=== PATIENT | female | born 1950 | race African-American/Black ===

== ENCOUNTER 2016-06-14 09:07 | Inpatient (IN) | payer MEDICARE, MEDICAID ==
[~2016-06-14] VITALS: Ht 167.6 cm; Wt 71.7 kg
[2016-06-14] MEDS ORDERED: NKM (09:28)
[2016-06-14 09:32] VITALS: BP 102/68
[2016-06-14] MEDS ORDERED: Tylenol #3 tab (300mg/30mg) ORAL ONE (10:30)
[2016-06-14] MEDS: Ipratropium 0.02% Inh Soln 2.5ml UD HHN SCH ×3 (10:41→11:15)
[2016-06-14] MEDS: Albuterol ud Inhalation HHN SCH ×3 (10:41→11:15)
--- NOTE | 2016-06-14 11:27 | Emergency Room Report ---
History of Present Illness General Chief Complaint: Flu Like Symptoms Source: Patient Present Illness HPI 65 YO F with 5 days productive cough, myalgias, sinus congestion, subjective fever/chills. Denies smoking. Denies asthma/COPD. Didnt take flu vaccine, PNA vavvine. Denies other PMHx. also sick in ED with simialr symptoms. Allergies: Uncoded Allergies: CODEIN (Allergy, Unknown, 06/14/16) PCN (Allergy, Unknown, 06/14/16) Patient History Past Medical History: none Past Surgical History: none Pertinent Family History: none Social History: Denies: alcohol use, drug use, smoking Now: No Immunizations: UTD Reviewed Nursing Documentation: PMH: Agreed, PSxH: Agreed Nursing Documentation-PMH Past Medical History: No History, Except For Review of Systems All Other Systems: negative except mentioned in HPI Physical Exam Vital Signs Date Time Temp Pulse Resp B/P Pulse Ox O2 Delivery O2 Flow Rate FiO2 06/14/16 09:23 98.2 85 16 102/68 95 Room Air 06/14/16 10:42 21 Sp02 EP Interpretation: reviewed, normal General Appearance: normal inspection, well appearing, no apparent distress, alert, GCS 15, non-toxic Head: normocephalic, atraumatic Eyes: bilateral eye EOMI, bilateral eye PERRL ENT: normal ENT inspection, hearing grossly normal, normal pharynx, no angioedema, normal voice, TMs + canals normal, uvula midline, moist mucus membranes Neck: normal inspection, full range of motion, supple, no bony tend Respiratory: normal inspection, lungs clear, normal breath sounds, no respiratory distress, no retraction, no wheezing, crackles, other - Crackles, rhonchi left lung Cardiovascular #1: regular rate, rhythm, no edema Gastrointestinal: normal inspection, normal bowel sounds, non tender, soft, no guarding, no hernia Genitourinary: no CVA tenderness Musculoskeletal: normal inspection, back normal, normal range of motion, Mayela' s Sign negative Neurologic: normal inspection, alert, oriented x3, responsive, information systems security specialist III-XII nml as tested, motor strength/tone normal, speech normal Psychiatric: normal inspection, judgement/insight normal, mood/affect normal Skin: normal inspection, normal color, no rash Medical Decision Making Medicare Attestation I Elva Stone MD hereby attest that the medical record entry for date of service, 05/05/16 accurately reflects signatures/notations that I made in my capacity as MD when I treated/diagnosed the above listed Medicare beneficiary. I attest that this information is true, accurate and complete to the best of my knowledge. I understand that any falsification, omission, or concealment of material fact may subject me to administrative, civil, or criminal liability. This patient warrants hospital admission for extreme of age and has a condition that cannot be treated as outpatient. Diagnostic Impression: Primary Impression: Pneumonia Qualified Codes: J18.9 - Pneumonia, unspecified organism Additional Impressions: JORGE (acute kidney injury) Hypokalemia ER Course 65 YO F with viral like illness also with clinical PNA, left upper lobe rhonchi on exam. VS notable for tachycardia. Afebrile. Empiric tx with Levo for suspected CAP EKG Diagnostic Results Rate: normal Rhythm: NSR ST Segments: no acute changes ASA given to the pt in ED: No Rhythm Strip Diag. Results EP Interpretation: yes Rate: 74 Rhythm: NSR, no PVC's, no ectopy Chest X-Ray Diagnostic Results EP Interpretation: Yes Findings: no consolidation Number of Views: 1 Reevaluation Time: 11:50 Last Vital Signs Date Time Temp Pulse Resp B/P Pulse Ox O2 Delivery O2 Flow Rate FiO2 06/14/16 10:43 21 06/14/16 10:43 81 18 99 Room Air 06/14/16 09:32 98.3 102/68 Status: improved Reevaluation Impression Labs: No leuks. H&H stable. ?JORGE (no previous serumCr to compare). HypoK CXR: No obvious focal PNA A: Clinical PNA vs influenza. Persistent rhonchi heard on exam in upper/mid left lung. EMpiric ABx given for PNA. Patient not septic, no SIRS. Labs significant delayed and patient was upstairs prior to receipt of CMP so HypoK could not be repleted Endorsed to Dr Kennedy at 1150am Disposition: ADMITTED INPATIENT Condition: Serious ELVA STONE M.D. Jun 14, 2016 11:27
--- NOTE | 2016-06-14 11:54 | Diagnostic Imaging Report ---
Indications: COUGH Technique: Portable AP chest Findings: Comparison: None Linear and small calcified nodular densities are present in the left lung base. The left hemidiaphragm is mildly elevated. Right lung clear. Left costophrenic angle slightly blunted; right sharp. Bones and extra pulmonary soft tissues, cardiomediastinal silhouette, pulmonary vasculature unremarkable. IMPRESSION: Calcified granuloma, subsegmental atelectasis versus scarring, mild parenchymal volume loss left lung base Suggestion of associated mild left basal pleural thickening versus fluid Remainder of exam unremarkable
[2016-06-14 12:04] VITALS: BP 110/65
[2016-06-14 12:45] VITALS: BP 109/59
[2016-06-14 12:49] LABS: BASOPHILS % (AUTO) 0.9 % (0.0-2.0); LYMPHOCYTES % (AUTO) 9.4 % (20.0-45.0); MEAN CORPUSCULAR HEMOGLOBIN 26.3 PG (27.0-31.0); MEAN CORPUSCULAR VOLUME 85 FL (80-99); MEAN PLATELET VOLUME 9.4 FL (6.5-10.1); MONOCYTES % (AUTO) 6.5 % (1.0-10.0); NEUTROPHILS % (AUTO) 83.2 % (45.0-75.0); PLATELET COUNT 180 K/UL (150-450); RED BLOOD COUNT 5.07 M/UL (4.20-5.40); RED CELL DISTRIBUTION WIDTH 13.7 % (11.6-14.8); WHITE BLOOD COUNT 8.6 K/UL (4.8-10.8)
[2016-06-14 13:02] LABS: ALBUMIN/GLOBULIN RATIO 0.9 (1.0-2.7); CALCIUM 9.3 mg/dL (8.6-10.2); GLOMERULAR FILTRATION RATE 30.3 mL/min (>60); POTASSIUM 3.1 mEQ/L (3.4-4.9); TOTAL PROTEIN 7.6 g/dL (6.6-8.7)
[2016-06-14 13:32] VITALS: BP 115/60
--- NOTE | 2016-06-14 14:30 | History & Physical ---
History and Physical History & Physicial HP dictated # [id number] CHEVY RANDOLPH Jun 14, 2016 14:30
[2016-06-14 15:58] VITALS: BP 107/65
[2016-06-14] MEDS: DuoNeb 0.5-3(2.5)mg/3ml neb HHN SCH (19:45)
[2016-06-14 20:00] VITALS: BP 107/62
[2016-06-14] MEDS ORDERED: Zolpidem 5mg tab ORAL PRN (21:00)
[2016-06-14 23:03] LABS: APPEARANCE,URINE SLIGHTLY CLOUDY; KETONES,URINE NEGATIVE (NEGATIVE); LEUKOCYTE ESTERASE ,URINE 1+ (NEGATIVE); NITRITE,URINE NEGATIVE (NEGATIVE); PH,URINE 5 (4.5-8.0); PROTEIN,URINE 3+ (NEGATIVE); UROBILINOGEN,URINE NORMAL MG/DL (0.0-1.0)
[2016-06-14 23:04] LABS: CREATININE, RANDOM URINE 266.6 mg/dL
[2016-06-14 23:10] LABS: RBC,URINE 0-2 /HPF (0 - 2)
[2016-06-14 23:11] LABS: BACTERIA,URINE MODERATE /HPF; SQUAMOUS EPITHELIAL CELL,UR FEW /LPF (NONE/OCC)
[2016-06-15] VITALS: BP 117/62
[2016-06-15] MEDS: DuoNeb 0.5-3(2.5)mg/3ml neb HHN SCH ×4 (01:28→20:14)
[2016-06-15 04:00] VITALS: BP 122/57
--- NOTE | 2016-06-15 06:47 | History and Physical Report ---
DATE OF ADMISSION: 06/14/2016 CHIEF COMPLAINT: Cough, sputum production, and congestion. HISTORY OF PRESENT ILLNESS: This is a 65-year-old female, who started having the above symptoms about 4 days ago and progressed to the degree that she had to come to the hospital today. The patient denies fevers, but she said that her sputum was bloody. The patient was diagnosed with pneumonia in the emergency room and was admitted for further care. PAST MEDICAL HISTORY: The patient denies any previous history of chronic obstructive pulmonary disease, asthma, any lung problems, hypertension, or diabetes. MEDICATIONS: None. ALLERGIES: Penicillin causing swelling up and codeine the patient is intolerant to. SOCIAL HISTORY: The patient lives at home with . No history of smoking or alcohol abuse. REVIEW OF SYSTEMS: As above. PHYSICAL EXAMINATION: GENERAL: The patient is a 65-year-old female, in no acute distress. VITAL SIGNS: Blood pressure 150/60, pulse 104, respiratory rate is 20, and temperature 96.8. HEENT: [place] conjunctivae. Anicteric sclerae. NECK: Supple. LUNGS: Mild rhonchi bilaterally. HEART: S1 and S2 without murmurs or rubs. ABDOMEN: Soft and nontender. EXTREMITIES: No cyanosis or edema. LABORATORY FINDINGS: The CBC shows a WBC of 8.6, hematocrit 43, hemoglobin is 13.3, and platelets 180,000. The chemistry panel shows serum sodium 140, potassium 3.1, chloride 95, CO2 of 24, BUN is 41, creatinine 2, and blood sugar is 143. ASSESSMENT: This is a 65-year-old female, who was admitted with diagnosis of pneumonia. She has also renal failure. In the absence of previous history of renal failure, we have to assume this is acute, possibly as a result of prerenal azotemia, although other causes should be ruled out. The patient has also had hypokalemia. She had some diarrhea in the past couple of days. PLAN: The patient will be treated with intravenous Levaquin. The patient will be on bronchodilators via hand-held nebulizer, intravenous fluids will be administered. We will check urine studies including UA as well as urine sodium and urine creatinine to calculate the fractional excretion of the sodium. If the kidney function does not improve, a kidney ultrasound will be ordered as well. Yasmany Kennedy M.D. DR: TRENT JOB#: [id number] CC: OPAL
[2016-06-15 07:35] LABS: HEMOGLOBIN A1C 5.8 % (< 6.0)
[2016-06-15 08:00] VITALS: BP 131/65
[2016-06-15 08:06] LABS: THYROID STIMULATING HORMONE 1.39 uIU/mL (0.300-4.500)
[2016-06-15 08:24] LABS: CALCIUM 9.2 mg/dL (8.6-10.2); CHOLESTEROL/HDL RATIO 3.8 (3.3-4.4); CREATININE 1.4 mg/dL (0.5-0.9); GLOMERULAR FILTRATION RATE 45.8 mL/min (>60); MAGNESIUM 2.2 mg/dL (1.7-2.5); POTASSIUM 3.5 mEQ/L (3.4-4.9); TOTAL PROTEIN 7.1 g/dL (6.6-8.7)
[2016-06-15] MEDS ORDERED: guaiFENesin DM 100mg/5ml ORAL PRN (11:00)
[2016-06-15 12:00] VITALS: BP 113/73
--- NOTE | 2016-06-15 15:14 | General Progress Note ---
Assessment/Plan Problem List: (1) Pneumonia ICD Codes: J18.9 - Pneumonia, unspecified organism SNOMED: 610070377 Qualifiers: Qualified Codes: J18.9 - Pneumonia, unspecified organism (2) ARF (acute renal failure) Assessment & Plan: better ICD Codes: N17.9 - Acute kidney failure, unspecified SNOMED: 67074561 (3) Hypokalemia Assessment & Plan: ok ICD Codes: E87.6 - Hypokalemia SNOMED: 33862477 Assessment/Plan abxs bronchodilators IVF follow labs Subjective Allergies: Uncoded Allergies: CODEIN (Allergy, Unknown, 06/14/16) PCN (Allergy, Unknown, 06/14/16) Subjective feels better Objective Last 24 Hour Vital Signs Date Time Temp Pulse Resp B/P Pulse Ox O2 Delivery O2 Flow Rate FiO2 06/15/16 13:38 88 16 99 Room Air 06/15/16 13:36 88 18 Room Air 21 06/15/16 13:25 88 20 98 Room Air 06/15/16 12:00 98.1 88 18 113/73 97 Room Air 06/15/16 08:00 98.2 92 18 131/65 93 Room Air 06/15/16 07:55 85 16 99 Room Air 06/15/16 07:45 80 20 91 Room Air 06/15/16 04:00 98.4 88 20 122/57 91 Room Air 06/15/16 01:31 91 16 99 Room Air 06/15/16 01:24 85 16 95 Room Air 06/15/16 00:00 98.1 84 20 117/62 96 Room Air 06/14/16 20:00 98.2 86 20 107/62 93 Room Air 06/14/16 19:50 89 16 99 Room Air 06/14/16 19:45 81 16 96 Room Air 06/14/16 19:45 81 16 Room Air 06/14/16 15:58 97.7 90 18 107/65 95 Room Air Intake and Output 06/14/16 06/15/16 19:00 07:00 Intake Total 510 ml 825 ml Balance 510 ml 825 ml Intake Oral 360 ml IV Total 150 ml 825 ml # Voids 2 4 Laboratory Tests 06/14/16 18:15: Urine Color Yellow, Urine Appearance Slightly cloudy, Urine pH 5, Urine Specific [place] 1.020, Urine Protein 3+H, Urine Glucose (UA) Negative, Urine Ketones Negative, Urine Occult Blood 1+H, Urine Nitrite Negative, Urine Bilirubin Negative, Urine Urobilinogen Normal, Urine Leukocyte Esterase 1+H, Urine RBC 0-2, Urine WBC 2-4, Urine Squamous Epithelial Cells Few, Urine Bacteria ModerateH, Urine Random Sodium 10, Urine Creatinine 266.6 06/15/16 04:45: Sodium Level 141, Potassium Level 3.5, Chloride Level 97L, Carbon Dioxide Level 26, Anion Gap 18H, Blood Urea Nitrogen 28H, Creatinine 1.4H, Estimat Glomerular Filtration Rate 45.8, Glucose Level 106, Hemoglobin A1c 5.8, Calcium Level 9.2, Magnesium Level 2.2, Total Bilirubin 0.2, Aspartate Amino Transf (AST/SGOT) 40, Alanine Aminotransferase (ALT/SGPT) 13, Alkaline Phosphatase 42, Total Protein 7.1, Albumin 3.6, Globulin 3.5, Albumin/Globulin Ratio 1.0, Triglycerides Level 91, Cholesterol Level 111, LDL Cholesterol 64, HDL Cholesterol 29, Cholesterol/ HDL Ratio 3.8, Thyroid Stimulating Hormone (TSH) 1.390 Height (Feet): 5 Height (Inches): 6.00 Weight (Pounds): 158 Cardiovascular: normal rate Respiratory/Chest: lungs clear Abdomen: soft CHEVY RANDOLPH Jun 15, 2016 15:14
[2016-06-15 16:00] VITALS: BP 118/68
--- NOTE | 2016-06-15 19:47 | Cardiology Report ---
APPROVED REPORT EKG Measurement Heart [id number] [id number] Normal sinus rhythm Possible Left atrial enlargement Nonspecific T wave abnormality Abnormal ECG
[2016-06-15 20:00] VITALS: BP 126/75
[2016-06-16] VITALS: BP 102/69
--- NOTE | 2016-06-16 00:17 | Consultation ---
DATE OF CONSULTATION: 06/15/2016 INFECTIOUS DISEASE CONSULTATION PRIMARY ATTENDING PHYSICIAN: Yasmany Kennedy M.D. REASON FOR CONSULT: Bronchitis and pneumonia. HISTORY OF PRESENT ILLNESS: The patient is a 65-year-old female admitted yesterday from home because of coughing, myalgia, subjective fever and chills, and sore throat. Symptoms going for couple of days. The patient's also becomes weak. PAST MEDICAL HISTORY: Significant. The patient did not have any vaccination for pneumonia or flu and is not willing to get vaccinated. MEDICATIONS: Levaquin, Ambien, DuoNeb inhaler, ranitidine, sodium chloride, and Tylenol. ALLERGIES: The patient is allergic to penicillin and codeine. REVIEW OF SYSTEMS: Productive cough and sore throat. No nausea. No vomiting. No chest pain. No problem passing urine. The patient is ambulatory. PHYSICAL EXAMINATION: GENERAL APPEARANCE: She is in no acute distress. Awake, alert, and oriented x3. VITAL SIGNS: Temperature is 98.2 degrees, pulse is 92, and blood pressure is 131/65. HEAD AND NECK: [place] conjunctiva. HEART: Regular. LUNGS: Clear bilaterally. ABDOMEN: Soft and nontender. EXTREMITIES: She has no edema. LABORATORY AND DIAGNOSTIC DATA: WBC 8.6, hemoglobin 13.3, hematocrit 43, and platelets 180,000. Sodium 141, potassium 3.5, BUN 28, and creatinine 1.4. Glucose was 106. Chest x-ray showed calcified granuloma, subsegmental atelectasis versus scarring in the left lung base. IMPRESSION: Bronchitis versus early pneumonia. The patient may have community acquired pneumonia. The patient has acute renal failure and penicillin allergy. RECOMMENDATION: We will continue with IV Levaquin and will send sputum culture. The patient refused to have pneumonia and flu shot. At the end of my exam, I thank Dr. Yasmany Kennedy for involving me in the care of this patient. Eddie Kennedy M.D. DR: Carol JOB#: [id number] CC: OPAL
[2016-06-16] MEDS: DuoNeb 0.5-3(2.5)mg/3ml neb HHN SCH ×4 (01:55→19:28)
[2016-06-16 04:00] VITALS: BP 137/68
[2016-06-16 07:11] LABS: ANION GAP 13 (5-15); CALCIUM 8.8 mg/dL (8.6-10.2); CARBON DIOXIDE 26 mEQ/L (20-30); CHLORIDE 101 mEQ/L (98-107); CREATININE 1.1 mg/dL (0.5-0.9); GLOMERULAR FILTRATION RATE > 60 mL/min (>60); HEMOLYSIS 2; POTASSIUM 3.7 mEQ/L (3.4-4.9); SODIUM 140 mEQ/L (135-145)
[2016-06-16 07:37] LABS: MEAN CORPUSCULAR HEMOGLOBIN 26.5 PG (27.0-31.0); MEAN CORPUSCULAR HGB CONC 31.6 G/DL (32.0-36.0); MEAN CORPUSCULAR VOLUME 84 FL (80-99); MEAN PLATELET VOLUME 9.3 FL (6.5-10.1); PLATELET COUNT 177 K/UL (150-450); RED BLOOD COUNT 4.36 M/UL (4.20-5.40); RED CELL DISTRIBUTION WIDTH 13.6 % (11.6-14.8); WHITE BLOOD COUNT 2.7 K/UL (4.8-10.8)
[2016-06-16 08:14] VITALS: BP 100/71
--- NOTE | 2016-06-16 09:52 | Infectious Diseases Prog Note ---
Assessment/Plan Assessment/Plan A: CAP Bronchitis PCN allergy P: Continue Levaquin Repeat CXR Subjective ROS Limited/Unobtainable: No HEENT: Reports: no symptoms Respiratory: Reports: productive cough Gastrointestinal/Abdominal: Reports: no symptoms Genitourinary: Reports: no symptoms Allergies: Uncoded Allergies: CODEIN (Allergy, Unknown, 06/14/16) PCN (Allergy, Unknown, 06/14/16) Objective Vital Signs Last 24 Hour Vital Signs Date Time Temp Pulse Resp B/P Pulse Ox O2 Delivery O2 Flow Rate FiO2 06/16/16 08:14 98.1 78 18 100/71 92 Room Air 06/16/16 04:00 99.1 83 20 137/68 92 Room Air 06/16/16 01:55 94 20 97 Room Air 21 06/16/16 01:55 89 20 95 Room Air 21 06/16/16 00:00 99.7 104 22 102/69 94 Room Air 06/15/16 20:00 97.7 91 22 126/75 90 Room Air 06/15/16 19:40 92 20 96 Room Air 21 06/15/16 19:30 90 20 94 Room Air 21 06/15/16 19:30 90 20 Room Air 21 06/15/16 16:00 98.2 87 18 118/68 96 Room Air 06/15/16 13:38 88 16 99 Room Air 06/15/16 13:36 88 18 Room Air 21 06/15/16 13:25 88 20 98 Room Air 06/15/16 12:00 98.1 88 18 113/73 97 Room Air Height (Feet): 5 Height (Inches): 6.00 Weight (Pounds): 158 General Appearance: no acute distress HEENT: mucous membranes moist Respiratory/Chest: lungs clear, decreased breath sounds Cardiovascular: normal rate Abdomen: soft, non tender Extremities: no edema Neurologic/Psychiatric: alert, oriented x 3, responsive Microbiology Date/Time Source Procedure Growth Status 06/14/16 17:45 Blood Blood Culture - Preliminary NO GROWTH AFTER 24 HOURS Resulted 06/14/16 17:30 Blood Blood Culture - Preliminary NO GROWTH AFTER 24 HOURS Resulted 06/14/16 18:15 Urine,Clean Catch Urine Culture - Preliminary NO GROWTH Resulted Laboratory Tests Test 06/16/16 04:40 White Blood Count 2.7 K/UL (4.8-10.8) L Red Blood Count 4.36 M/UL (4.20-5.40) Hemoglobin 11.5 G/DL (12.0-16.0) L Hematocrit 36.5 % (37.0-47.0) L Mean Corpuscular Volume 84 FL (80-99) Mean Corpuscular Hemoglobin 26.5 PG (27.0-31.0) L Mean Corpuscular Hemoglobin Concent 31.6 G/DL (32.0-36.0) L Red Cell Distribution Width 13.6 % (11.6-14.8) Platelet Count 177 K/UL (150-450) Mean Platelet Volume 9.3 FL (6.5-10.1) Neutrophils (%) (Auto) % (45.0-75.0) Lymphocytes (%) (Auto) % (20.0-45.0) Monocytes (%) (Auto) % (1.0-10.0) Eosinophils (%) (Auto) % (0.0-3.0) Basophils (%) (Auto) % (0.0-2.0) Neutrophils % (Manual) Pending Lymphocytes % (Manual) Pending Platelet Estimate Pending Platelet Morphology Pending Sodium Level 140 mEQ/L (135-145) Potassium Level 3.7 mEQ/L (3.4-4.9) Chloride Level 101 mEQ/L (98-107) Carbon Dioxide Level 26 mEQ/L (20-30) Anion Gap 13 (5-15) Blood Urea Nitrogen 16 mg/dL (7-23) Creatinine 1.1 mg/dL (0.5-0.9) H Estimat Glomerular Filtration Rate > 60 mL/min (>60) Glucose Level 98 mg/dL (74-106) Calcium Level 8.8 mg/dL (8.6-10.2) Current Medications Medications (Trade) Dose Ordered Sig/Adrian Route PRN Reason Start Time Stop Time Status Last Admin Dose Admin Acetaminophen (Tylenol) 650 mg Q4H PRN ORAL Mild Pain (Pain Scale 1-3) 06/14/16 15:00 2 14:59 Acetaminophen (Tylenol) 650 mg Q4H PRN ORAL fever 06/14/16 15:00 07/14/16 14:59 Albuterol/ Ipratropium (DuoNeb 0.5-3(2.5)mg/3ml) 3 ml Q6HRT HHN 06/14/16 19:00 06/19/16 18:59 06/16/16 07:26 Dextrose STAT PRN IV Hypoglycemia 06/14/16 15:00 07/14/16 14:59 Guaifenesin/ Dextromethorphan (Robitussin DM) 5 ml Q4H PRN ORAL For Cough 06/15/16 11:00 07/15/16 10:59 Levofloxacin (Levaquin 750mg/ D5W) 150 ml @ 100 mls/hr Q24H IVPB 06/16/16 11:00 06/23/16 10:59 Ranitidine HCl (Zantac) 150 mg Q24H ORAL 06/14/16 16:00 07/14/16 15:59 06/15/16 16:09 Sodium Chloride (0.45% NS 1000ml) 1,000 ml @ 75 mls/hr [id number] IV 06/14/16 15:00 07/14/16 14:59 06/16/16 03:27 Zolpidem Tartrate (Ambien) 5 mg HSPRN PRN ORAL Insomnia 06/14/16 21:00 07/14/16 20:59 LILIANE RANDOLPH Jun 16, 2016 09:52
[2016-06-16 10:59] LABS: LYMPHOCYTES % (MANUAL) 34 % (20-45); NEUTROPHILS % (MANUAL) 46 % (45-75); TOTAL CELLS COUNTED 100
[2016-06-16 11:00] LABS: BAND NEUTROPHILS % (MANUAL) 0 % (0-8); BASOPHILS % (MANUAL) 0 % (0-2); EOSINOPHILS % (MANUAL) 0 % (0-3); HYPOCHROMASIA 1+; PLATELET ESTIMATE ADEQUATE; PLATELET MORPHOLOGY NORMAL
[2016-06-16 11:58] VITALS: BP_SYST 126; BP_SYST 137; BP_DIAS 70; BP_DIAS 74
--- NOTE | 2016-06-16 13:02 | Diagnostic Imaging Report ---
Indications: Cough Technique: Portable AP chest Findings: Comparison: 06/14/16 Cardiac silhouette remains normal in size. Pulmonary vasculature remains within normal limits. Left lung base subsegmental atelectasis versus scarring with mild elevation of adjacent left hemidiaphragm unchanged. Lungs and pleura remain otherwise clear. Impression: No evidence of acute disease, unchanged Stable chronic changes as described
--- NOTE | 2016-06-16 14:39 | General Progress Note ---
Assessment/Plan Problem List: (1) Pneumonia ICD Codes: J18.9 - Pneumonia, unspecified organism SNOMED: 441617936 Qualifiers: Qualified Codes: J18.9 - Pneumonia, unspecified organism (2) ARF (acute renal failure) Assessment & Plan: better ICD Codes: N17.9 - Acute kidney failure, unspecified SNOMED: 30795769 (3) Hypokalemia Assessment & Plan: ok ICD Codes: E87.6 - Hypokalemia SNOMED: [id number] Assessment/Plan abxs bronchodilators IVF follow labs Subjective Allergies: Uncoded Allergies: CODEIN (Allergy, Unknown, 06/14/16) PCN (Allergy, Unknown, 06/14/16) Subjective feels better Objective Last 24 Hour Vital Signs Date Time Temp Pulse Resp B/P Pulse Ox O2 Delivery O2 Flow Rate FiO2 06/16/16 11:58 97.9 81 18 126/74 94 Room Air 06/16/16 08:14 98.1 78 18 100/71 92 Room Air 06/16/16 04:00 99.1 83 20 137/68 92 Room Air 06/16/16 01:55 94 20 97 Room Air 21 06/16/16 01:55 89 20 95 Room Air 21 06/16/16 00:00 99.7 104 22 102/69 94 Room Air 06/15/16 20:00 97.7 91 22 126/75 90 Room Air 06/15/16 19:40 92 20 96 Room Air 21 06/15/16 19:30 90 20 94 Room Air 21 06/15/16 19:30 90 20 Room Air 21 06/15/16 16:00 98.2 87 18 118/68 96 Room Air Intake and Output 06/15/16 06/16/16 19:00 07:00 Intake Total 855 ml 675 ml Balance 855 ml 675 ml Intake Oral 480 ml IV Total 375 ml 675 ml # Voids 3 7 Laboratory Tests 06/16/16 04:40: White Blood Count 2.7L, Red Blood Count 4.36, Hemoglobin 11.5L, Hematocrit 36.5L , Mean Corpuscular Volume 84, Mean Corpuscular Hemoglobin 26.5L, Mean Corpuscular Hemoglobin Concent 31.6L, Red Cell Distribution Width 13.6, Platelet Count 177, Mean Platelet Volume 9.3, Neutrophils (%) (Auto) , Lymphocytes (%) (Auto) , Monocytes (%) (Auto) , Eosinophils (%) (Auto) , Basophils (%) (Auto) , Differential Total Cells Counted 100, Neutrophils % ( Manual) 46, Lymphocytes % (Manual) 34, Monocytes % (Manual) 20H, Eosinophils % ( Manual) 0, Basophils % (Manual) 0, Band Neutrophils 0, Platelet Estimate Adequate, Platelet Morphology Normal, Hypochromasia 1+, Sodium Level 140, Potassium Level 3.7, Chloride Level 101, Carbon Dioxide Level 26, Anion Gap 13, Blood Urea Nitrogen 16, Creatinine 1.1H, Estimat Glomerular Filtration Rate > 60 , Glucose Level 98, Calcium Level 8.8 Height (Feet): 5 Height (Inches): 6.00 Weight (Pounds): 158 Cardiovascular: normal rate Respiratory/Chest: lungs clear Edema: no edema noted Generalized CHEVY RANDOLPH Jun 16, 2016 14:39
[2016-06-16 16:00] VITALS: BP 136/66
[2016-06-16 20:00] VITALS: BP 115/76
[2016-06-17] VITALS: BP 117/72
[2016-06-17] MEDS: DuoNeb 0.5-3(2.5)mg/3ml neb HHN SCH ×3 (00:43→13:06)
[2016-06-17 04:00] VITALS: BP 111/70
[2016-06-17 08:16] VITALS: BP 123/75
[2016-06-17 12:00] VITALS: BP 130/86
--- NOTE | 2016-06-17 13:55 | Infectious Diseases Prog Note ---
Assessment/Plan Assessment/Plan A: CAP Bronchitis PCN allergy P: Continue Levaquin Subjective ROS Limited/Unobtainable: No Constitutional: Reports: no symptoms Respiratory: Reports: dry cough Gastrointestinal/Abdominal: Reports: no symptoms Genitourinary: Reports: no symptoms Allergies: Uncoded Allergies: CODEIN (Allergy, Unknown, 06/14/16) PCN (Allergy, Unknown, 06/14/16) Objective Vital Signs Last 24 Hour Vital Signs Date Time Temp Pulse Resp B/P Pulse Ox O2 Delivery O2 Flow Rate FiO2 06/17/16 12:00 97.0 84 18 130/86 98 Room Air 06/17/16 08:16 97.2 81 18 123/75 98 Room Air 06/17/16 07:40 88 18 100 Room Air 06/17/16 07:25 90 20 94 Nasal Cannula 06/17/16 07:25 21 06/17/16 07:25 90 20 Room Air 06/17/16 04:00 97.7 78 18 111/70 95 Room Air 06/17/16 01:14 87 18 99 Room Air 06/17/16 00:43 21 06/17/16 00:43 90 18 92 Room Air 06/17/16 00:00 98.2 79 18 117/72 94 Room Air 06/16/16 20:00 99.1 89 20 115/76 94 Room Air 06/16/16 19:45 86 18 99 Room Air 06/16/16 19:28 83 18 98 Room Air 06/16/16 19:28 21 06/16/16 16:31 82 19 97 Room Air 06/16/16 16:30 83 19 97 Room Air 06/16/16 16:30 82 18 Room Air 06/16/16 16:00 98.2 82 22 136/66 99 Room Air 06/16/16 14:10 21 06/16/16 13:55 82 19 96 Room Air 21 06/16/16 13:55 82 19 96 Room Air 21 Height (Feet): 5 Height (Inches): 6.00 Weight (Pounds): 158 General Appearance: no acute distress HEENT: mucous membranes moist Respiratory/Chest: lungs clear Cardiovascular: normal rate Abdomen: soft, non tender Extremities: no edema Neurologic/Psychiatric: alert, oriented x 3, responsive Microbiology Date/Time Source Procedure Growth Status 06/14/16 17:45 Blood Blood Culture - Preliminary NO GROWTH AFTER 48 HOURS Resulted 06/14/16 17:30 Blood Blood Culture - Preliminary NO GROWTH AFTER 48 HOURS Resulted 06/15/16 14:20 Sputum Gram Stain - Final Complete 06/15/16 14:20 Sputum Sputum Culture - Final NORMAL UPPER RESPIRATORY DENISSE PRESENT Complete 06/14/16 18:15 Urine,Clean Catch Urine Culture - Final Mixed Gram Positive Organism Complete Current Medications Medications (Trade) Dose Ordered Sig/Adrian Route PRN Reason Start Time Stop Time Status Last Admin Dose Admin Acetaminophen (Tylenol) 650 mg Q4H PRN ORAL Mild Pain (Pain Scale 1-3) 06/14/16 15:00 07/14/16 14:59 Acetaminophen (Tylenol) 650 mg Q4H PRN ORAL fever 06/14/16 15:00 07/14/16 14:59 Albuterol/ Ipratropium (DuoNeb 0.5-3(2.5)mg/3ml) 3 ml Q6HRT HHN 06/14/16 19:00 06/19/16 18:59 06/17/16 07:25 Dextrose STAT PRN IV Hypoglycemia 06/14/16 15:00 07/14/16 14:59 Guaifenesin/ Dextromethorphan (Robitussin DM) 5 ml Q4H PRN ORAL For Cough 06/15/16 11:00 07/15/16 10:59 Levofloxacin (Levaquin 750mg/ D5W) 150 ml @ 100 mls/hr Q24H IVPB 06/16/16 11:00 06/23/16 10:59 06/17/16 09:49 Ranitidine HCl (Zantac) 150 mg Q24H ORAL 06/14/16 16:00 07/14/16 15:59 06/16/16 16:36 Sodium Chloride (0.45% NS 1000ml) 1,000 ml @ 75 mls/hr [id number] IV 06/14/16 15:00 07/14/16 14:59 06/17/16 09:49 Zolpidem Tartrate (Ambien) 5 mg HSPRN PRN ORAL Insomnia 06/14/16 21:00 07/14/16 20:59 LILIANE RANDOLPH Jun 17, 2016 13:55
[2016-06-17 16:00] VITALS: BP 146/88
[2016-06-17] MEDS ORDERED: LEVAQUIN750 MG ORAL (16:07)
--- NOTE | 2016-06-17 16:10 | Consultation ---
Consult Note Assessment/Plan Dc dictated # [id number] CHEVY RANDOLPH Jun 17, 2016 16:10
[2016-06-17] MEDS ORDERED: 1/2 NS 1000ml IV ONE ×2 (16:44)
--- NOTE | 2016-06-18 04:07 | Discharge Summary ---
DATE OF ADMISSION: 06/14/2016 DATE OF DISCHARGE: 06/17/2016 CHIEF COMPLAINT: Cough, sputum production, and congestion. HISTORY OF PRESENT ILLNESS: This is a 65-year-old female, who was admitted with above symptoms. The patient was diagnosed with pneumonia and was admitted for further care. HOSPITAL COURSE: The patient was started on intravenous Levaquin. She was allergic to penicillin. Also, she was started on handheld nebulizer bronchodilators. She had some acute renal failure as well with serum creatinine of 2.0 with BUN of 41. The patient was hypokalemic with potassium 3.1. The patient was hydrated with IV fluids. Her BUN and creatinine came down to 16 and 1.1 as of 06/16/2016. Potassium is repleted. The last potassium was on 06/16/2016 at 3.7. The patient's rest of the symptoms improved significantly and she was sent home. DISCHARGE MEDICATIONS: The patient is supposed to take Levaquin 750 milligram once a day for the next 4 days. DISCHARGE DIAGNOSES: 1. Pneumonia. 2. Acute renal failure with volume depletion. 3. Hypokalemia. FOLLOWUP: The patient was asked to come to my office for followup in about a week. Diet was regular. Yasmany Kennedy M.D. DR: A[place] JOB#: [id number] CC: OPAL
== END 2016-06-17 16:45 | disposition home or self-care (01) | DRG 194 ==
LOC: EMR 10:50 → 4W 11:30 → EDBEDREQ 12:12
DX: J18.9 Pneumonia, unspecified organism (principal); N17.9 Acute kidney failure, unspecified; E87.6 Hypokalemia; Z88.0 Allergy status to penicillin
CPT/HCPCS: 36415; 71010; 80048; 80053; 80061; 81001; 82570; 83036; 83735; 84300; 84443; 85007; 85025; 87040; 87070; 87086; 87205; 93005; 94640; 94664; J7620

== ENCOUNTER 2017-03-23 11:45 | Outpatient (CLI) | payer MEDICAID, MEDICARE ==
[~2017-03-23 11:45] MED LIST: LEVAQUIN750 MG ORAL; NKM
[2017-03-23 12:26] LABS: BASOPHILS % (AUTO) 1.6 % (0.0-2.0); EOSINOPHILS % (AUTO) 3.2 % (0.0-3.0); LYMPHOCYTES % (AUTO) 27.5 % (20.0-45.0); MEAN CORPUSCULAR HEMOGLOBIN 27.2 PG (27.0-31.0); MEAN CORPUSCULAR HGB CONC 30.7 G/DL (32.0-36.0); MEAN CORPUSCULAR VOLUME 89 FL (80-99); MEAN PLATELET VOLUME 9.5 FL (6.5-10.1); MONOCYTES % (AUTO) 6.5 % (1.0-10.0); NEUTROPHILS % (AUTO) 61.2 % (45.0-75.0); PLATELET COUNT 224 K/UL (150-450); RED BLOOD COUNT 4.36 M/UL (4.20-5.40); RED CELL DISTRIBUTION WIDTH 13.9 % (11.6-14.8); WHITE BLOOD COUNT 4.7 K/UL (4.8-10.8)
[2017-03-23 12:34] LABS: ANION GAP 9 mmol/L (5-15); CALCIUM 9.5 MG/DL (8.5-10.1); CARBON DIOXIDE 28 MMOL/L (21-32); CHLORIDE 110 MMOL/L (98-107); CREATININE 1.3 MG/DL (0.55-1.30); GLOMERULAR FILTRATION RATE 49.7 mL/min (>60); INR 1.1 (0.9-1.1); POTASSIUM 4.1 MMOL/L (3.5-5.1); SODIUM 147 MMOL/L (136-145)
--- NOTE | 2017-03-25 15:22 | Cardiology Report ---
APPROVED REPORT EKG Measurement Heart [id number] AR [id number] [id number] Normal sinus rhythm Normal ECG
== END 2017-03-23 13:45 | disposition home or self-care (01) ==
LOC: LAB 11:45
DX: Z01.818 Encounter for other preprocedural examination (principal); J20.9 Acute bronchitis, unspecified
CPT/HCPCS: 36415; 80048; 85025; 85610; 85730; 93005

== ENCOUNTER 2017-10-25 22:09 | Emergency (ER) | payer MEDICARE ==
[~2017-10-25] VITALS: Ht 167.6 cm; Wt 66.2 kg
[2017-10-25 22:29] VITALS: BP 143/77
--- NOTE | 2017-10-25 22:42 | Emergency Room Report ---
History of Present Illness General Chief Complaint: Eye Problems Source: Patient Present Illness HPI This is a 67-year-old female with no past medical history. Presents with chief complaint of left eye foreign body sensation and redness. She was in bed when she got up and felt that something might of fluid into her eye. No pain. She fell some swelling and when she looked in the mirror there is redness. No headache. No fever chills but no nausea no vomiting. No visual loss. Allergies: Uncoded Allergies: CODEIN (Allergy, Unknown, 06/14/16) PCN (Allergy, Unknown, 06/14/16) Patient History Past Medical History: see triage record, old chart reviewed Past Surgical History: other Pertinent Family History: none Social History: Denies: smoking Now: No Immunizations: other Reviewed Nursing Documentation: PMH: Agreed; PSxH: Agreed Nursing Documentation-PMH Past Medical History: No Stated History Hx Cardiac Problems: No Hx Cancer: No Hx Gastrointestinal Problems: No Hx Neurological Problems: No Review of Systems Eye: Reports: other; Denies: eye pain, blurred vision ENT: Denies: ear pain, nose congestion, throat swelling Respiratory: Denies: cough, shortness of breath Cardiovascular: Denies: chest pain, palpitations Gastrointestinal: Denies: abdominal pain, diarrhea, nausea, vomiting Musculoskeletal: Denies: back pain, joint pain Skin: Denies: rash Neurological: Denies: headache, numbness Endocrine: Denies: increased thirst, increased urine Hematologic/Lymphatic: Denies: easy bruising All Other Systems: negative except mentioned in HPI Physical Exam Vital Signs Date Time Temp Pulse Resp B/P (MAP) Pulse Ox O2 Delivery O2 Flow Rate FiO2 10/25/17 22:12 98.0 76 16 138/72 95 Room Air 98.1 Vitals normal Sp02 EP Interpretation: reviewed, normal General Appearance: well appearing, no apparent distress, alert Head: normocephalic, atraumatic Eyes: left eye other - Left eye with subconjunctival hemorrhage on the lateral aspect. No visual loss. There is some edema to the sclera from the blood. No other trauma.; bilateral eye PERRL, bilateral eye EOMI ENT: hearing grossly normal, normal pharynx Neck: full range of motion, supple, no meningismus Respiratory: chest non-tender, lungs clear, normal breath sounds Cardiovascular #1: regular rate, rhythm, no murmur Gastrointestinal: normal bowel sounds, non tender, no mass, no organomegaly, no bruit, non-distended Musculoskeletal: back normal, gait/station normal, normal range of motion Psychiatric: mood/affect normal Skin: warm/dry Medical Decision Making Diagnostic Impression: Primary Impression: Subconjunctival hemorrhage of left eye ER Course Patient with a subconjunctival hemorrhage of the left eye. No foreign body. No visual loss. No trauma. We'll discharge home with reassurance. Last Vital Signs Date Time Temp Pulse Resp B/P (MAP) Pulse Ox O2 Delivery O2 Flow Rate FiO2 10/25/17 22:29 98.2 76 18 143/77 99 Room Air 98.2 Status: unchanged Disposition: HOME, SELF-CARE Condition: Stable Referrals: Yasmany Kennedy MD (PCP) Additional Instructions: Follow-up your doctor in 7 days. If not better may need to see an eye doctor. Return if symptom worsen. Ice pack to the area. IOANA SCHULZ M.D. October 25, 2017 22:42
[2017-10-25 22:49] VITALS: BP 138/70
[2017-10-25 22:54] VITALS: BP 138/70
== END 2017-10-25 22:50 | disposition home or self-care (01) ==
LOC: EMR 22:26
DX: H11.32 Conjunctival hemorrhage, left eye (principal); Z88.0 Allergy status to penicillin; Z88.6 Allergy status to analgesic agent
CPT/HCPCS: 99283

== ENCOUNTER → 2018-03-01 | Outpatient (CLI) | payer MEDICAID, MEDICARE ==
[2018-03-01 10:52] LABS: APPEARANCE,URINE CLEAR; BASOPHILS % (AUTO) 1.4 % (0.0-2.0); BILIRUBIN, URINE NEGATIVE (NEGATIVE); EOSINOPHILS % (AUTO) 5.9 % (0.0-3.0); GLUCOSE, URINE (UA) NEGATIVE (NEGATIVE); HEMATOCRIT 39.7 % (37.0-47.0); HEMOGLOBIN 12.4 G/DL (12.0-16.0); KETONES,URINE NEGATIVE (NEGATIVE); LEUKOCYTE ESTERASE ,URINE 3+ (NEGATIVE); LYMPHOCYTES % (AUTO) 33.3 % (20.0-45.0); MEAN CORPUSCULAR VOLUME 85 FL (80-99); MONOCYTES % (AUTO) 5.8 % (1.0-10.0); NEUTROPHILS % (AUTO) 53.6 % (45.0-75.0); NITRITE,URINE NEGATIVE (NEGATIVE); PH,URINE 5 (4.5-8.0); PLATELET COUNT 236 K/UL (150-450); PROTEIN,URINE 1+ (NEGATIVE); RED BLOOD COUNT 4.69 M/UL (4.20-5.40); RED CELL DISTRIBUTION WIDTH 13.1 % (11.6-14.8); UROBILINOGEN,URINE NORMAL MG/DL (0.0-1.0); WHITE BLOOD COUNT 4.6 K/UL (4.8-10.8)
[2018-03-01 11:01] LABS: COLOR,URINE YELLOW
[2018-03-01 11:20] LABS: ALANINE AMINOTRANSFERASE 20 U/L (12-78); ALKALINE PHOSPHATASE 51 U/L (46-116); ANION GAP 8 mmol/L (5-15); ASPARTATE AMINO TRANSFERASE 38 U/L (15-37); BILIRUBIN,TOTAL 0.4 MG/DL (0.2-1.0); BLOOD UREA NITROGEN 13 mg/dL (7-18); CALCIUM 9.5 MG/DL (8.5-10.1); CARBON DIOXIDE 29 MMOL/L (21-32); CHLORIDE 107 MMOL/L (98-107); CHOLESTEROL 165 MG/DL (< 200); CREATININE 1.3 MG/DL (0.55-1.30); HDL CHOLESTEROL 68 MG/DL (40-60); POTASSIUM 3.9 MMOL/L (3.5-5.1); SODIUM 144 MMOL/L (136-145); TRIGLYCERIDES 55 MG/DL (30-150)
== END | disposition home or self-care (01) ==
LOC: RAD 08:31
DX: J45.909 Unspecified asthma, uncomplicated (principal); I10 Essential (primary) hypertension
CPT/HCPCS: 36415; 80053; 80061; 81001; 83036; 85025

== ENCOUNTER → 2019-01-04 | Outpatient (CLI) | payer MEDICARE ==
[2019-01-04 12:17] LABS: APPEARANCE,URINE SLIGHTLY CLOUDY; BILIRUBIN, URINE NEGATIVE (NEGATIVE); COLOR,URINE PALE YELLOW; GLUCOSE, URINE (UA) NEGATIVE (NEGATIVE); KETONES,URINE NEGATIVE (NEGATIVE); LEUKOCYTE ESTERASE ,URINE 2+ (NEGATIVE); NITRITE,URINE NEGATIVE (NEGATIVE); PH,URINE 5 (4.5-8.0); PROTEIN,URINE NEGATIVE (NEGATIVE); UROBILINOGEN,URINE NORMAL MG/DL (0.0-1.0)
[2019-01-04 12:19] LABS: BASOPHILS % (AUTO) 2.9 % (0.0-2.0); EOSINOPHILS % (AUTO) 5.9 % (0.0-3.0); HEMATOCRIT 35.7 % (37.0-47.0); HEMOGLOBIN 11.2 G/DL (12.0-16.0); LYMPHOCYTES % (AUTO) 28.3 % (20.0-45.0); MEAN CORPUSCULAR VOLUME 85 FL (80-99); MONOCYTES % (AUTO) 6.4 % (1.0-10.0); NEUTROPHILS % (AUTO) 56.6 % (45.0-75.0); PLATELET COUNT 237 K/UL (150-450); RED BLOOD COUNT 4.21 M/UL (4.20-5.40); WHITE BLOOD COUNT 5.1 K/UL (4.8-10.8)
[2019-01-04 12:44] LABS: ALANINE AMINOTRANSFERASE 18 U/L (12-78); ALBUMIN 3.8 G/DL (3.4-5.0); ALBUMIN/GLOBULIN RATIO 0.9 (1.0-2.7); ALKALINE PHOSPHATASE 42 U/L (46-116); ANION GAP 9 mmol/L (5-15); ASPARTATE AMINO TRANSFERASE 40 U/L (15-37); BILIRUBIN,TOTAL 0.7 MG/DL (0.2-1.0); BLOOD UREA NITROGEN 14 mg/dL (7-18); CALCIUM 9.4 MG/DL (8.5-10.1); CARBON DIOXIDE 27 MMOL/L (21-32); CHLORIDE 109 MMOL/L (98-107); CHOLESTEROL 147 MG/DL (< 200); CREATININE 1.3 MG/DL (0.55-1.30); HDL CHOLESTEROL 61 MG/DL (40-60); POTASSIUM 3.7 MMOL/L (3.5-5.1); SODIUM 145 MMOL/L (136-145); TRIGLYCERIDES 42 MG/DL (30-150)
== END | disposition home or self-care (01) ==
LOC: LAB 11:49
DX: I10 Essential (primary) hypertension (principal); K21.9 Gastro-esophageal reflux disease without esophagitis; J45.909 Unspecified asthma, uncomplicated
CPT/HCPCS: 36415; 80053; 80061; 81001; 84443; 85025

== ENCOUNTER 2019-01-13 13:32 | Outpatient (CLI) | payer MEDICARE ==
[2019-01-13 14:05] LABS: ANION GAP 8 mmol/L (5-15); BLOOD UREA NITROGEN 21 mg/dL (7-18); CALCIUM 9.9 MG/DL (8.5-10.1); CARBON DIOXIDE 29 MMOL/L (21-32); CHLORIDE 106 MMOL/L (98-107); CREATININE 1.5 MG/DL (0.55-1.30); POTASSIUM 3.8 MMOL/L (3.5-5.1); SODIUM 142 MMOL/L (136-145)
== END 2019-01-13 15:32 | disposition home or self-care (01) ==
LOC: LAB 13:32
DX: K21.9 Gastro-esophageal reflux disease without esophagitis (principal); I10 Essential (primary) hypertension
CPT/HCPCS: 36415; 80048; 82306; 83036; 83970

== ENCOUNTER 2019-07-11 13:04 | Outpatient (CLI) | payer MEDICARE, OTHER ==
[2019-07-11 13:49] LABS: APPEARANCE,URINE CLEAR; BILIRUBIN, URINE NEGATIVE (NEGATIVE); GLUCOSE, URINE (UA) NEGATIVE (NEGATIVE); KETONES,URINE NEGATIVE (NEGATIVE); LEUKOCYTE ESTERASE ,URINE 1+ (NEGATIVE); NITRITE,URINE NEGATIVE (NEGATIVE); PH,URINE 5 (4.5-8.0); PROTEIN,URINE NEGATIVE (NEGATIVE); UROBILINOGEN,URINE NORMAL MG/DL (0.0-1.0)
[2019-07-11 13:50] LABS: BASOPHILS % (AUTO) 1.4 % (0.0-2.0); COLOR,URINE YELLOW; EOSINOPHILS % (AUTO) 3.4 % (0.0-3.0); HEMOGLOBIN 11.8 G/DL (12.0-16.0); LYMPHOCYTES % (AUTO) 27.2 % (20.0-45.0); MEAN CORPUSCULAR VOLUME 85 FL (80-99); MONOCYTES % (AUTO) 6.8 % (1.0-10.0); NEUTROPHILS % (AUTO) 61.3 % (45.0-75.0); PLATELET COUNT 217 K/UL (150-450); RED BLOOD COUNT 4.38 M/UL (4.20-5.40); RED CELL DISTRIBUTION WIDTH 13.9 % (11.6-14.8); WHITE BLOOD COUNT 5.5 K/UL (4.8-10.8)
[2019-07-11 14:08] LABS: ALANINE AMINOTRANSFERASE 24 U/L (12-78); ALBUMIN 3.8 G/DL (3.4-5.0); ALBUMIN/GLOBULIN RATIO 0.9 (1.0-2.7); ALKALINE PHOSPHATASE 48 U/L (46-116); ANION GAP 10 mmol/L (5-15); ASPARTATE AMINO TRANSFERASE 29 U/L (15-37); BILIRUBIN,TOTAL 0.5 MG/DL (0.2-1.0); BLOOD UREA NITROGEN 14 mg/dL (7-18); CALCIUM 9.3 MG/DL (8.5-10.1); CARBON DIOXIDE 29 MMOL/L (21-32); CHLORIDE 108 MMOL/L (98-107); CREATININE 1.3 MG/DL (0.55-1.30); PHOSPHORUS 3.3 MG/DL (2.5-4.9); POTASSIUM 3.7 MMOL/L (3.5-5.1); SODIUM 147 MMOL/L (136-145)
== END 2019-07-11 15:04 | disposition home or self-care (01) ==
LOC: LAB 13:04
DX: I12.9 Hypertensive chronic kidney disease with stage 1 through stage 4 chronic kidney disease, or unspecified chronic kidney disease (principal); N18.9 Chronic kidney disease, unspecified
CPT/HCPCS: 36415; 80053; 81001; 82306; 83735; 84100; 85025

== ENCOUNTER 2019-09-19 15:26 | Emergency (ER) | payer MEDICARE, OTHER ==
[~2019-09-19] VITALS: Ht 167.6 cm; Wt 64.9 kg
[2019-09-19 15:34] VITALS: BP 130/77
[2019-09-19] MEDS ORDERED: IBUPROFEN400 MG ORAL (15:52)
[2019-09-19] MEDS ORDERED: PRILOSEC OTC20 MG ORAL (15:52)
--- NOTE | 2019-09-19 15:54 | Emergency Room Report ---
History of Present Illness General Chief Complaint: Upper Extremity Injury Source: Patient Present Illness HPI Patient is a 68-year-old female presents after increased right upper extremity pain. Patient reports having a fall from standing after tripping on branch. She reports being right-hand dominant. Reports having pain to the right shoulder. She denies hitting her head. She denies loss of consciousness. She denies other locations of injury. Denies any difficulty breathing. Denies any other prior injuries to the shoulder. Reports having some increased pain to the right side. Denies any chest pain or discomfort. Denies any shortness of breath. Allergies: Uncoded Allergies: CODEIN (Allergy, Unknown, 06/14/16) PCN (Allergy, Unknown, 06/14/16) COVID-19 Screening Contact w/high risk pt: No Recent Travel to affected area: No Experienced COVID-19 symptoms?: No Patient History Past Medical History: see triage record Reviewed Nursing Documentation: PMH: Agreed; PSxH: Agreed Nursing Documentation-PMH Past Medical History: No History, Except For Hx Cardiac Problems: No Hx Asthma: No - PNA Hx Cancer: No Hx Gastrointestinal Problems: No Hx Neurological Problems: No Review of Systems All Other Systems: negative except mentioned in HPI Physical Exam Vital Signs Date Time Temp Pulse Resp B/P (MAP) Pulse Ox O2 Delivery O2 Flow Rate FiO2 09/19/19 15:34 98.2 80 18 130/77 99 Room Air Sp02 EP Interpretation: reviewed, normal General Appearance: normal inspection, well appearing, no apparent distress, alert, GCS 15, non-toxic Head: atraumatic ENT: normal ENT inspection, hearing grossly normal, normal voice Neck: normal inspection, full range of motion, supple, no bony tend Respiratory: normal inspection, lungs clear, normal breath sounds, no respiratory distress, no retraction, no wheezing Cardiovascular #1: regular rate, rhythm, no edema Gastrointestinal: normal inspection, normal bowel sounds, non tender, soft, no guarding, no hernia Genitourinary: no CVA tenderness Musculoskeletal: back normal, decreased range of motion - intact sensation., other - Right upper extremity anterior fullness with no bruising, other extremities appear normal Neurologic: alert, motor strength/tone normal, continuous dryout operator III-XII nml as tested, responsive, speech normal, normal inspection Psychiatric: normal inspection, judgement/insight normal, mood/affect normal Medical Decision Making Diagnostic Impression: Primary Impression: Dislocation, shoulder, anterior ER Course Patient presented for right shoulder pain. Differential diagnosis include was not limited to shoulder dislocation, fracture, contusion among others. Because of complexity of patient's case imaging studies were ordered. Patient was noted to have initially a anterior deformity consistent with a right shoulder dislocation. Patient's shoulder was reduced with Alvarado technique and gentle axial traction. Patient tolerated this well. Post procedure x-ray was ordered. Postprocedure x-ray 3 view showed no evidence of acute fracture. Patient was placed in a sling. She was advised to follow-up with primary care physician for physical therapy and orthopedic referral. She was advised to return if worsening pain or dislocation. The patient is advised to follow up with primary care doctor in 1-2 days. Patient is advised to return if any worsening condition or if any changes in status that are concerning. This report is dictated with [email or web address] food quality tester software which may occasionally lead to discrepancies related to use of this software. Last Vital Signs Date Time Temp Pulse Resp B/P (MAP) Pulse Ox O2 Delivery O2 Flow Rate FiO2 09/19/19 15:34 98.2 80 18 130/77 (94) 99 Room Air Status: improved Disposition: HOME, SELF-CARE Condition: Stable Scripts Omeprazole Magnesium (PRILOSEC OTC) 20 Mg Tablet. 20 MG ORAL DAILY, #30 TAB Prov: Juan Davies MD 09/19/19 Ibuprofen* (MOTRIN*) 400 Mg Tablet 400 MG ORAL Q8H, #30 TAB 0 Refills Prov: Juan Davies MD 09/19/19 Patient Instructions: Shoulder Dislocation Additional Instructions: Follow up with Dr. Kennedy for orthopedic referall for shoulder dislocation. Return if worse. Do not raise your arm above shoulder height. Juan Davies MD Sep 19, 2019 15:54
[2019-09-19 16:37] VITALS: BP 128/70
--- NOTE | 2019-09-19 16:58 | Diagnostic Imaging Report ---
Indication: Right shoulder pain Technique: 3 views of the right shoulder Comparison: none Findings: No acute fractures. No dislocations. The joint spaces are preserved Impression: Negative
== END 2019-09-19 16:37 | disposition home or self-care (01) ==
LOC: EMR 15:55
DX: S43.004A Unspecified dislocation of right shoulder joint, initial encounter (principal); W01.0XXA Fall on same level from slipping, tripping and stumbling without subsequent striking against object, initial encounter; Y92.9 Unspecified place or not applicable; Z88.0 Allergy status to penicillin; Z88.6 Allergy status to analgesic agent
CPT/HCPCS: 99283

== ENCOUNTER → 2020-05-10 | Outpatient (CLI) | payer MEDICARE ==
[~2020-05-10] MED LIST changes: +IBUPROFEN400 MG ORAL; +PRILOSEC OTC20 MG ORAL
[2020-05-10 12:41] LABS: BASOPHILS % (AUTO) 1.6 % (0.0-2.0); EOSINOPHILS % (AUTO) 5.8 % (0.0-3.0); HEMATOCRIT 40.7 % (37.0-47.0); HEMOGLOBIN 12.8 G/DL (12.0-16.0); LYMPHOCYTES % (AUTO) 33.5 % (20.0-45.0); MEAN CORPUSCULAR VOLUME 85 FL (80-99); MONOCYTES % (AUTO) 6.7 % (1.0-10.0); NEUTROPHILS % (AUTO) 52.3 % (45.0-75.0); PLATELET COUNT 259 K/UL (150-450); RED CELL DISTRIBUTION WIDTH 13.8 % (11.6-14.8); WHITE BLOOD COUNT 4.5 K/UL (4.8-10.8)
[2020-05-10 12:50] LABS: APPEARANCE,URINE CLOUDY; BILIRUBIN, URINE NEGATIVE (NEGATIVE); GLUCOSE, URINE (UA) NEGATIVE (NEGATIVE); KETONES,URINE NEGATIVE (NEGATIVE); LEUKOCYTE ESTERASE ,URINE 3+ (NEGATIVE); NITRITE,URINE NEGATIVE (NEGATIVE); PH,URINE 5 (4.5-8.0); PROTEIN,URINE 1+ (NEGATIVE); UROBILINOGEN,URINE NORMAL MG/DL (0.0-1.0)
[2020-05-10 12:51] LABS: COLOR,URINE YELLOW
[2020-05-10 13:07] LABS: ALANINE AMINOTRANSFERASE 24 U/L (12-78); ALBUMIN 4.2 G/DL (3.4-5.0); ALBUMIN/GLOBULIN RATIO 0.9 (1.0-2.7); ALKALINE PHOSPHATASE 47 U/L (46-116); ANION GAP 5 mmol/L (5-15); ASPARTATE AMINO TRANSFERASE 39 U/L (15-37); BILIRUBIN,TOTAL 0.7 MG/DL (0.2-1.0); BLOOD UREA NITROGEN 20 mg/dL (7-18); CALCIUM 9.4 MG/DL (8.5-10.1); CARBON DIOXIDE 31 MMOL/L (21-32); CHLORIDE 102 MMOL/L (98-107); CHOLESTEROL 170 MG/DL (< 200); CREATININE 1.7 MG/DL (0.55-1.30); HDL CHOLESTEROL 63 MG/DL (40-60); POTASSIUM 3.7 MMOL/L (3.5-5.1); SODIUM 138 MMOL/L (136-145); TRIGLYCERIDES 58 MG/DL (30-150)
== END | disposition home or self-care (01) ==
LOC: LAB 12:11
DX: N18.9 Chronic kidney disease, unspecified (principal); J45.909 Unspecified asthma, uncomplicated
CPT/HCPCS: 36415; 80053; 80061; 81001; 83036; 84443; 85025; 87086